=== PATIENT | male | born 1960 | race Caucasian/White ===

== ENCOUNTER 2017-03-26 16:06 | Outpatient (CLI) | payer OTHER ==
[2015-05-01 12:14] VITALS: BP 117/54
--- NOTE | 2017-03-26 17:00 | Diagnostic Imaging Report ---
KARMA NINA~ [facility] [address] [facility].[address] [address] ~ ~ ~ ~ Report Submission Date: Mar 26, 2017 4:48:19 PM APPLIANCE SERVICE TECHNICIAN Patient ~ Study Name: CHRISTI LOPEZ ~ Date: Mar 26, 2017 4:22:21 PM APPLIANCE SERVICE TECHNICIAN ~ Modality Type: CR Gender: M ~ Description: CHEST : 64 ~ Institution: [facility] Physician: KARMA NINA ~ ~ ~ Examination: PA and lateral chest. History: CXR, DYSPNEA ON EXERTION, WEIGHT GAIN, COUGH X1 MONTH WITH MUSCLE TIGHTNESS IN MID CHEST WHILE COUGHING (Hx) / COUGH/ WEIGHT GAIN/ DYSPNEA ON EXERTION (DICOM Hx) / COUGH/ WEIGHT GAIN/ DYSPNEA ON EXERTION (Pt comments) Comparison exam: None provided. Findings: PA lateral chest demonstrate a normal cardiac and mediastinal silhouette. No focal infiltrate.~ No blunting of the right costophrenic margin. Left costophrenic margin not well visualized. No posterior sulci blunting. ~ Osseous structures are appropriate for age. Impression: No acute appearing pulmonary process. ~ Electronically signed on Mar 26, 2017 4:48:19 PM APPLIANCE SERVICE TECHNICIAN by: [place] SUMMERS
[2017-03-26 17:22] LABS: BASOPHILS % 0.6 (0.0-1.5); MEAN CORPUSCULAR HEMOGLOBIN 29.3 pg (28.0-34.0); MEAN CORPUSCULAR VOLUME 90.3 fl (80.0-100.0); NEUTROPHILS # 5.6 # k/uL (1.4-7.7)
[2017-03-26 17:39] LABS: eGFR (African) > 60; eGFR (Non-African) > 60
== END 2017-03-26 16:07 ==
LOC: LAB 16:06
PROVIDERS: ATTEND Family Medicine
DX: R06.09 Other forms of dyspnea (principal); F32.9 Major depressive disorder, single episode, unspecified; R63.5 Abnormal weight gain; I10 Essential (primary) hypertension; R60.0 Localized edema
CPT/HCPCS: 36415; 71020; 80053; 83880; 84443; 85025